=== PATIENT | female | born 2000 | race African-American/Black ===

== ENCOUNTER 2019-06-26 15:18 | Emergency (ER) | payer SELFPAY ==
--- NOTE | 2019-06-26 15:48 | ER Document Report ---
ED Medical Screen (RME) - General Chief Complaint: Vaginal Bleeding Stated Complaint: ABDNORMAL BLEEDING Time Seen by Provider: 06/26/19 15:37 Mode of Arrival: Ambulatory Information source: Patient Notes: 18-year-old female presents to ED for complaint of vaginal bleeding x12 days. She states sometimes the drainage is brown and sometimes it is red. She states sometimes it has a little tiny clots in. She states she has never had any bleeding like this in the past. She states she did do a test which was negative at home. She states the only medical history she has is asthma. She is alert oriented respirations regular and unlabored speaking in full sentences. She states she is not on any control at this time she did have a NuvaRing last month but states she no longer uses this. I have greeted and performed a rapid initial assessment of this patient. A comprehensive ED assessment and evaluation of the patient, analysis of test results and completion of medical decision making process will be conducted by an additional ED providers. Dictation of this chart was performed using voice recognition software; therefore, there may be some unintended grammatical errors. - Related Data Allergies/Adverse Reactions: No Known Allergies Allergy (Unverified 06/26/19 15:19) Past Medical History - Social History Chew tobacco use (# tins/day): No Frequency of alcohol use: Occasional Drug Abuse: None Pulmonary Medical History: Reports: Hx Asthma Renal/ Medical History: Denies: Hx Peritoneal Dialysis Physical Exam - Vital signs Vitals: Temp Pulse Resp BP Pulse Ox 98.7 F 86 18 143/81 H 99 06/26/19 15:26 06/26/19 15:26 06/26/19 15:26 06/26/19 15:26 06/26/19 15:26 Course - Vital Signs Vital signs: Temp Pulse Resp BP Pulse Ox 98.7 F 86 18 143/81 H 99 06/26/19 15:26 06/26/19 15:26 06/26/19 15:26 06/26/19 15:26 06/26/19 15:26
[2019-06-26 16:59] LABS: ABSOLUTE BASOPHILS # (AUTO) 0.1 10^3/uL (0.0-0.2); ABSOLUTE EOSINOPHILS # (AUTO) 0.1 10^3/uL (0.0-0.6); ABSOLUTE MONOCYTES (AUTO) 0.7 10^3/uL (0.1-1.4); ABSOLUTE NEUT (AUTO) 6.7 10^3/uL (1.7-8.2); EOSINOPHILS % (AUTO) 0.8 % (0-6); HEMATOCRIT 38.3 % (36.0-47.0); LYMPHOCYTES % (AUTO) 21.1 % (13-45); MEAN CORPUSCULAR HEMOGLOBIN 23.8 pg (27.0-33.4); MEAN CORPUSCULAR HGB CONC 31.2 g/dL (32.0-36.0); MEAN CORPUSCULAR VOLUME 76 fl (80-97); MONOCYTES % (AUTO) 6.8 % (3-13); PLATELET COUNT 386 10^3/uL (150-450); RED BLOOD COUNT 5.02 10^6/uL (3.72-5.28); RED CELL DISTRIBUTION WIDTH 15.5 % (11.5-14.0); SEGMENTED NEUTROPHILS % (AUTO) 70.3 % (42-78); TOTAL CELLS COUNTED % (AUTO) 100 %; WHITE BLOOD COUNT 9.6 10^3/uL (4.0-10.5)
[2019-06-26 17:17] LABS: APPEARANCE,URINE CLEAR; BILIRUBIN,URINE NEGATIVE (NEGATIVE); COLOR,URINE YELLOW; GLUCOSE, URINE NEGATIVE (NEGATIVE); KETONES,URINE NEGATIVE (NEGATIVE); LEUKOCYTE ESTERASE,URINE NEGATIVE (NEGATIVE); NITRITE,URINE NEGATIVE (NEGATIVE); PROTEIN,URINE NEGATIVE (NEGATIVE); URINE SPECIFIC GRAVITY 1.027
[2019-06-26 17:20] LABS: ALBUMIN 4.5 g/dL (3.7-5.6); ALKALINE PHOSPHATASE 61 U/L (50-135); ANION GAP 10 (5-19); ASPARTATE AMINO TRANSFERASE 19 U/L (5-30); BILIRUBIN,DIRECT 0.3 mg/dL (0.0-0.4); BILIRUBIN,TOTAL 0.3 mg/dL (0.2-1.3); BLOOD UREA NITROGEN 15 mg/dL (7-20); CALCIUM 9.9 mg/dL (8.4-10.2); CARBON DIOXIDE 26 mmol/L (22-30); CHLORIDE 104 mmol/L (98-107); GLUCOSE 86 mg/dL (75-110); POTASSIUM 4.2 mmol/L (3.6-5.0); TOTAL PROTEIN 7.6 g/dL (6.3-8.2)
--- NOTE | 2019-06-26 19:50 | ER Document Report ---
HPI - HPI Patient complains to provider of: Vaginal bleeding Time Seen by Provider: 06/26/19 15:37 Onset: Other - 12 days Onset/Duration: Persistent Pain Level: 2 Context: Patient presents complaining of vaginal spotting for the past 12 days. Patient states blood has appeared brown in color although is occasionally red. Patient reports mild cramping. Patient was recently changed from oral contraceptive pills to a NuvaRing last month. Patient took the NuvaRing out for a week but when she continued to have vaginal bleeding after reinserting the NuvaRing for 2 days she decided to take the NuvaRing out again. Patient states that she got concerned that she was having bleeding although she was on the medication. Patient denies any concerns about any sexually transmitted infection. Associated Symptoms: Other - vaginal bleeding Exacerbated by: Denies Relieved by: Denies Similar symptoms previously: No Recently seen / treated by doctor: Yes - ROS ROS below otherwise negative: Yes Systems Reviewed and Negative: Yes All other systems reviewed and negative - CONSTITUTIONAL Constitutional: DENIES: Fever, Chills - NEURO Neurology: DENIES: Headache, Weakness - CARDIOVASCULAR Cardiovascular: DENIES: Chest pain - RESPIRATORY Respiratory: DENIES: Trouble Breathing, Coughing - GASTROINTESTINAL Gastrointestinal: REPORTS: Abdominal Pain - cramping. DENIES: Nausea, Patient vomiting - URINARY Urinary: DENIES: Dysuria - REPRODUCTIVE Reproductive: REPORTS: Abnormal bleeding / discharge. DENIES: : - MUSCULOSKELETAL Musculoskeletal: DENIES: Back Pain - DERM Skin Color: Normal Past Medical History - General Information source: Patient - Social History Smoking Status: Never Smoker Chew tobacco use (# tins/day): No Frequency of alcohol use: Occasional Drug Abuse: None Occupation: Retail Lives with: Spouse/Significant other Family History: Reviewed & Not Pertinent Patient has suicidal ideation: No Patient has homicidal ideation: No Pulmonary Medical History: Reports: Hx Asthma Renal/ Medical History: Denies: Hx Peritoneal Dialysis Surgical Hx: Negative Vertical Provider Document - CONSTITUTIONAL Agree With Documented VS: Yes Exam Limitations: No Limitations General Appearance: WD/WN, No Apparent Distress - HEENT HEENT: Atraumatic, Normocephalic - NECK Neck: Normal Inspection, Supple. negative: Lymphadenopathy-Left, Lymphadenopathy-Right - RESPIRATORY Respiratory: Breath Sounds Normal, No Respiratory Distress - CARDIOVASCULAR Cardiovascular: Regular Rate, Regular Rhythm, No Murmur - GI/ABDOMEN Gastrointestinal: Abdomen Soft, Abdomen Non-Tender, No Organomegaly, Normal Bowel Sounds. negative: Abdomen Tender, Abdominal Guarding - BACK Back: Normal Inspection - MUSCULOSKELETAL/EXTREMETIES Musculoskeletal/Extremeties: SUJEY VAZQUEZ - NEURO Level of Consciousness: Awake, Alert, Appropriate Motor/Sensory: No Motor Deficit - DERM Integumentary: Warm, Dry, No Rash Course - Re-evaluation Re-evalutation: 06/26/19 19:48 Offered patient pelvic examination, patient declined. Patient denies any concern about any pelvic infection. Suspect patient's bleeding is likely result of recently changing her control and not using the NuvaRing as prescribed. Patient encouraged to follow-up with her primary doctor to place her on the new control method to discuss other options if she is not happy with this form. Patient not anemic with stable vital signs. Patient appears stable for discharge at this time. Discussed worsening symptoms that patient should return immediately for. - Vital Signs Vital signs: Temp Pulse Resp BP Pulse Ox 98.7 F 86 18 143/81 H 99 06/26/19 15:26 06/26/19 15:26 06/26/19 15:26 06/26/19 15:26 06/26/19 15:26 - Laboratory Result Diagrams: 06/26/19 16:40 06/26/19 16:40 Laboratory results interpreted by me: 06/26/19 06/26/19 16:40 16:40 MCV 76 L MCH 23.8 L MCHC 31.2 L RDW 15.5 H Urine Blood LARGE H Urine Urobilinogen 2.0 H Discharge - Discharge Clinical Impression: Vagina bleeding Condition: Stable Disposition: HOME, SELF-CARE Instructions: Vaginal Bleeding ([facility]) Additional Instructions: Return immediately for any new or worsening symptoms Followup with your primary care provider, call tomorrow to make a followup appointment Forms: Return to Work [facility] - Follow up as needed
[2019-06-26 20:01] VITALS: BP 142/73
== END 2019-06-26 20:01 | disposition home or self-care (01) ==
LOC: ER 15:18
DX: N93.9 Abnormal uterine and vaginal bleeding, unspecified (principal); R10.9 Unspecified abdominal pain; J45.909 Unspecified asthma, uncomplicated; Z91.19 Patient's noncompliance with other medical treatment and regimen
CPT/HCPCS: 36415; 80053; 81001; 84702; 85025; 87086; 99284

== ENCOUNTER 2019-08-25 11:57 | Emergency (ER) | payer MEDICAID ==
--- NOTE | 2019-08-25 12:47 | ER Document Report ---
ED Medical Screen (RME) - General Chief Complaint: Abdominal Pain Stated Complaint: ABDOMINAL PAIN Time Seen by Provider: 08/25/19 12:36 Notes: Patient is a 18-year-old G2, P0 18-year-old female presents emergency department with abdominal pain and vaginal bleeding. Patient states that she only has a little bit of vaginal bleeding that started yesterday. She did have some cramping that started 5 days ago. Last menstrual cycle was 07/15/2019. Denies any vomiting, nausea, or diarrhea. Past medical history includes asthma. Exam: Mildly tender mid lower abdomen. I have greeted and performed a rapid initial assessment of this patient. A comprehensive ED assessment and evaluation of the patient, analysis of test results and completion of medical decision making process will be conducted by an additional ED providers. TRAVEL OUTSIDE OF THE [place] IN LAST 30 DAYS: No - Related Data Allergies/Adverse Reactions: No Known Allergies Allergy (Verified 08/25/19 12:35) Past Medical History - Social History Chew tobacco use (# tins/day): No Frequency of alcohol use: None Drug Abuse: None Pulmonary Medical History: Reports: Hx Asthma Renal/ Medical History: Denies: Hx Peritoneal Dialysis Physical Exam - Vital signs Vitals: Temp Pulse Resp BP Pulse Ox 98.0 F 84 16 140/72 H 100 08/25/19 12:05 08/25/19 12:05 08/25/19 12:05 08/25/19 12:05 08/25/19 12:05 Course - Vital Signs Vital signs: Temp Pulse Resp BP Pulse Ox 98.0 F 84 16 140/72 H 100 08/25/19 12:05 08/25/19 12:05 08/25/19 12:05 08/25/19 12:05 08/25/19 12:05
[2019-08-25 13:10] LABS: ABSOLUTE BASOPHILS # (AUTO) 0.1 10^3/uL (0.0-0.2); ABSOLUTE EOSINOPHILS # (AUTO) 0.1 10^3/uL (0.0-0.6); ABSOLUTE LYMPHOCYTES (AUTO) 2.1 10^3/uL (0.5-4.7); ABSOLUTE MONOCYTES (AUTO) 0.5 10^3/uL (0.1-1.4); ABSOLUTE NEUT (AUTO) 5.7 10^3/uL (1.7-8.2); APPEARANCE,URINE CLEAR; BILIRUBIN,URINE NEGATIVE (NEGATIVE); COLOR,URINE YELLOW; EOSINOPHILS % (AUTO) 0.6 % (0-6); GLUCOSE, URINE NEGATIVE (NEGATIVE); HEMOGLOBIN 11.6 g/dL (12.0-15.5); KETONES,URINE 20 mg/dL (NEGATIVE); LEUKOCYTE ESTERASE,URINE NEGATIVE (NEGATIVE); MEAN CORPUSCULAR HEMOGLOBIN 24.5 pg (27.0-33.4); MEAN CORPUSCULAR HGB CONC 32.2 g/dL (32.0-36.0); MEAN CORPUSCULAR VOLUME 76 fl (80-97); MONOCYTES % (AUTO) 6.3 % (3-13); NITRITE,URINE NEGATIVE (NEGATIVE); PLATELET COUNT 328 10^3/uL (150-450); PROTEIN,URINE NEGATIVE (NEGATIVE); RED BLOOD COUNT 4.73 10^6/uL (3.72-5.28); RED CELL DISTRIBUTION WIDTH 16.4 % (11.5-14.0); SEGMENTED NEUTROPHILS % (AUTO) 67.1 % (42-78); TOTAL CELLS COUNTED % (AUTO) 100 %; URINE SPECIFIC GRAVITY 1.019; UROBILINOGEN,URINE NEGATIVE mg/dL (<2.0); WHITE BLOOD COUNT 8.5 10^3/uL (4.0-10.5)
[2019-08-25 13:39] LABS: ALBUMIN 4.4 g/dL (3.7-5.6); ALKALINE PHOSPHATASE 60 U/L (50-135); ANION GAP 11 (5-19); ASPARTATE AMINO TRANSFERASE 19 U/L (5-30); BILIRUBIN,DIRECT 0.1 mg/dL (0.0-0.4); BILIRUBIN,TOTAL 0.3 mg/dL (0.2-1.3); BLOOD UREA NITROGEN 8 mg/dL (7-20); CALCIUM 9.8 mg/dL (8.4-10.2); CARBON DIOXIDE 24 mmol/L (22-30); CHLORIDE 103 mmol/L (98-107); GLUCOSE 82 mg/dL (75-110); POTASSIUM 4.2 mmol/L (3.6-5.0); TOTAL PROTEIN 7.7 g/dL (6.3-8.2)
--- NOTE | 2019-08-25 15:41 | RADIOLOGY REPORT (SQ) ---
EXAM DESCRIPTION: U/S OB TRANSVAG W/DOPPLER COMPLETED DATE/TIME: 08/25/2019 3:23 pm REASON FOR STUDY: vaginal bleeding; transvaginal please COMPARISON: None. TECHNIQUE: Transvaginal static and realtime grayscale images acquired of the pelvis. Additional javier cted spectral and color Doppler images recorded. All images stored on PACs. [facility] [place]: [phone] CLINICAL DATES: ROBERT: 04/20/2020. EGA: 5 weeks 6 days LIMITATIONS: None. FINDINGS: FETUS: Single Living intrauterine in the lower uterine segment. . ULTRASOUND EGA: 5 weeks 6 days ULTRASOUND ROBERT: 04/20/2020 EFW: Not applicable less than 20 weeks. CRL: 0.25 cm FHR: 113 beats per minute. AMNIOTIC FLUID: Adequate amount. PLACENTA: Not yet developed due to early gestation. SUBCHORIONIC BLEED: Small 8 x 12 x 5 mm subchorionic bleeding. SIZE OF BLEED: See above. UTERUS: The uterus is retroverted. No masses. No anomalies. CERVICAL LENGTH: 1.9 cm. Closed. RIGHT ADNEXA: Normal ovary with normal vascular flow. The right ovary measures 2.3 x 1.7 x 1.6 cm. No adnexal free fluid. No adnexal masses. LEFT ADNEXA: The left ovary measures 3.0 x 1.9 x 2.0 cm. A complex cyst measures 1.3 x 1.5 x 1.3 cm may represent a hemorrhagic corpus luteum cyst. No adnexal free fluid. FREE FLUID: Small amount of fluid in the cul-de-sac. OTHER: No other significant finding. IMPRESSION: LIVING INTRAUTERINE in the lower uterine segment. The uterus is retroverted. EGA: 5 weeks 6 days Small subchorionic bleed. Small left ovarian complex cyst, may represent a hemorrhagic corpus luteal cyst. Trimester of : First trimester - 0 to 13 weeks. TECHNICAL DOCUMENTATION: JOB ID: [id number]- All Rights Reserved rev-04/04 Reading location - IP/workstation name: [email or web address]
--- NOTE | 2019-08-25 15:55 | ER Document Report ---
ED General - General Chief Complaint: Abdominal Pain Stated Complaint: ABDOMINAL PAIN Time Seen by Provider: 08/25/19 12:36 TRAVEL OUTSIDE OF THE [place] IN LAST 30 DAYS: No - HPI Notes: Patient is a 18-year-old G2, P0 female that presents the emergency department for evaluation of the lower abdominal pain and spotting. She states her symptoms started 5 days ago. Her last period was 07/15/2019. She states that she had scant amount of brown bleeding on Saturday. She states she really has not had any since then. She is had constant cramping, with no aggravating or alleviating factors since then. She denies any other vaginal discharge. She states she is taking her vitamins, but only sporadically. - Related Data Allergies/Adverse Reactions: No Known Allergies Allergy (Verified 08/25/19 12:35) Past Medical History - General Information source: Patient Last Menstrual Period: 07/15 - Social History Smoking Status: Never Smoker Chew tobacco use (# tins/day): No Frequency of alcohol use: None Drug Abuse: None Family History: Reviewed & Not Pertinent Patient has suicidal ideation: No Patient has homicidal ideation: No Pulmonary Medical History: Reports: Hx Asthma Renal/ Medical History: Denies: Hx Peritoneal Dialysis Review of Systems - Review of Systems Constitutional: No symptoms reported EENT: No symptoms reported Cardiovascular: No symptoms reported Respiratory: No symptoms reported Gastrointestinal: No symptoms reported Genitourinary: No symptoms reported Female Genitourinary: See HPI Musculoskeletal: No symptoms reported Skin: No symptoms reported Neurological/Psychological: No symptoms reported Physical Exam - Vital signs Vitals: Temp Pulse Resp BP Pulse Ox 98.0 F 84 16 140/72 H 100 08/25/19 12:05 08/25/19 12:05 08/25/19 12:05 08/25/19 12:05 08/25/19 12:05 - Notes Notes: Vital signs reviewed, please refer to chart. Head is normocephalic, atraumatic. Pupils equal round, reactive to light. Neck is supple without meningismus. Heart is regular rate and rhythm. Lungs are clear to auscultation bilaterally. Abdomen is soft, nontender, normoactive bowel sounds throughout. Extremities without cyanosis, clubbing. Posterior calves are nontender. Peripheral pulses are equal. Skin is warm and dry. Patient is awake, alert, neurological exam is nonfocal. Course - Re-evaluation Re-evalutation: 08/25/19 15:53 Patient presents emergency department for evaluation. Laboratory investigations did in fact confirm early . Ultrasound revealed a consistent with the ages of her last menstrual period, as well as a small subchorionic bleed. Patient is to follow-up with OB. She is encouraged to take prenatals, early his folic acid and regular vitamins daily. She voiced understanding to this. Otherwise we will refer her on to OB, she is return to the ED with worsening or new concerning symptoms of any sort. - Vital Signs Vital signs: Temp Pulse Resp BP Pulse Ox 98.0 F 84 16 140/72 H 100 08/25/19 12:05 08/25/19 12:05 08/25/19 12:05 08/25/19 12:05 08/25/19 12:05 - Laboratory Result Diagrams: 08/25/19 12:56 08/25/19 12:56 Laboratory results interpreted by me: 08/25/19 08/25/19 08/25/19 12:56 12:56 12:56 Hgb 11.6 L MCV 76 L MCH 24.5 L RDW 16.4 H Beta HCG, Quant 6711.00 H Urine Ketones 20 H Urine HCG, Qual POSITIVE H - Diagnostic Test Radiology reviewed: Reports reviewed Radiology results interpreted by me: 08/25/19 15:54 Transvaginal US 08/25/19 12:41 IMPRESSION: LIVING INTRAUTERINE in the lower uterine segment. The uterus is retroverted. EGA: 5 weeks 6 days Small subchorionic bleed. Small left ovarian complex cyst, may represent a hemorrhagic corpus luteal cyst. Trimester of : First trimester - 0 to 13 weeks. Discharge - Discharge Clinical Impression: First trimester bleeding Condition: Stable Disposition: HOME, SELF-CARE Instructions: Bleeding During Early ([facility]) Additional Instructions: You had a small subchorionic hemorrhage noted on your ultrasound. This will l ikely get absorbed, and is not of any significant concern at this time. Follow- up with OB. Pelvic rest. Return to the ED with worsening or new concerning symptoms of any sort.
[2019-08-25 16:22] VITALS: BP 116/53
== END 2019-08-25 16:22 | disposition home or self-care (01) ==
LOC: ER 11:57
DX: O20.8 Other hemorrhage in early pregnancy (principal); O34.81 Maternal care for other abnormalities of pelvic organs, first trimester; N83.202 Unspecified ovarian cyst, left side; O26.891 Other specified pregnancy related conditions, first trimester; R10.30 Lower abdominal pain, unspecified; O99.511 Diseases of the respiratory system complicating pregnancy, first trimester; J45.909 Unspecified asthma, uncomplicated; Z3A.01 Less than 8 weeks gestation of pregnancy
CPT/HCPCS: 36415; 76817; 80053; 81001; 81025; 84702; 85025; 86900; 86901; 93976; 99284

== ENCOUNTER 2020-01-18 06:07 | Outpatient (CLI) | payer MEDICAID ==
[2020-01-18 06:43] LABS: APPEARANCE,URINE SLIGHTLY-CLOUDY; BILIRUBIN,URINE NEGATIVE (NEGATIVE); COLOR,URINE YELLOW; GLUCOSE, URINE NEGATIVE (NEGATIVE); KETONES,URINE NEGATIVE (NEGATIVE); LEUKOCYTE ESTERASE,URINE NEGATIVE (NEGATIVE); NITRITE,URINE NEGATIVE (NEGATIVE); PROTEIN,URINE NEGATIVE (NEGATIVE); URINE SPECIFIC GRAVITY 1.016; UROBILINOGEN,URINE NEGATIVE mg/dL (<2.0)
[2020-01-18 06:56] LABS: URINE AMPHETAMINES SCREEN NEGATIVE; URINE BARBITURATES SCREEN NEGATIVE; URINE BENZODIAZEPINES SCREEN NEGATIVE; URINE COCAINE SCREEN NEGATIVE; URINE MARIJUANA (THC) SCREEN NEGATIVE; URINE METHADONE SCREEN NEGATIVE; URINE PHENCYCLIDINE SCREEN NEGATIVE
== END 2020-01-18 07:35 | disposition home or self-care (01) ==
LOC: LC 06:07
PROVIDERS: ATTEND Obstetrics & Gynecology
PROC: 4A1HXCZ Monitoring of Products of Conception, Cardiac Rate, External Approach (ICD-10-PCS; principal; 2020-01-18)
DX: O36.8120 Decreased fetal movements, second trimester, not applicable or unspecified (principal); Z3A.26 26 weeks gestation of pregnancy
CPT/HCPCS: 80307; 81001

== ENCOUNTER 2020-03-01 12:17 | Outpatient (CLI) | payer MEDICAID ==
[2020-03-01 13:17] LABS: APPEARANCE,URINE CLEAR; BILIRUBIN,URINE NEGATIVE (NEGATIVE); COLOR,URINE YELLOW; GLUCOSE, URINE NEGATIVE (NEGATIVE); KETONES,URINE NEGATIVE (NEGATIVE); LEUKOCYTE ESTERASE,URINE NEGATIVE (NEGATIVE); NITRITE,URINE NEGATIVE (NEGATIVE); PROTEIN,URINE NEGATIVE (NEGATIVE); URINE SPECIFIC GRAVITY 1.013
[2020-03-01 13:39] LABS: URINE AMPHETAMINES SCREEN NEGATIVE; URINE BARBITURATES SCREEN NEGATIVE; URINE BENZODIAZEPINES SCREEN NEGATIVE; URINE COCAINE SCREEN NEGATIVE; URINE MARIJUANA (THC) SCREEN NEGATIVE; URINE METHADONE SCREEN NEGATIVE; URINE PHENCYCLIDINE SCREEN NEGATIVE
--- NOTE | 2020-03-01 13:51 | Non Stress Test Report ---
Non Stress Test Datetime Report Generated by CPN: 03/01/2020 13:51 DEMOGRAPHIC EGA NST: 32.6 INDICATION Indication for Study (NST) Other: iup 33 wks abdominal cramping VITAL SIGNS Temperature - NST: 99.0 Pulse - NST: 99 RESP - NST: 14 NBPSYS NST: 137 NBPDIA NST: 86 URINE RESULTS Urine Protein, NST: Negative Urine Ketones - NST: Negative Urine Glucose - NST: Negative Urine Blood - NST: Positive MONITORING Monitor Explained: Monitor Explained; Test Explained; Patient Verbalized Understanding Time on Monitor: 02/29/2020 12:33 Time off Monitor: 03/01/2020 13:33 NST Duration: 1500 NST INTERVENTIONS NST Interventions: PO Hydration Physician Notified NST: A Newton CNM BABY A: [id number] BABY A Movement : Present Contraction Frequency : none FHR Baseline : 135 Accelerations : 15X15 Decelerations : None Variability : Moderate 6-25bpm NST Review: Meets Criteria for Reactive NST NST Review and Verified By : Deepika Hoffman, RN NST Results: Reactive NST REPORT Report Trigger: Send Report
== END 2020-03-01 13:39 | disposition home or self-care (01) ==
LOC: LC 12:17
PROVIDERS: ATTEND Obstetrics & Gynecology Gynecology
PROC: 4A1HXCZ Monitoring of Products of Conception, Cardiac Rate, External Approach (ICD-10-PCS; principal; 2020-03-01)
DX: Z34.93 Encounter for supervision of normal pregnancy, unspecified, third trimester (principal)
CPT/HCPCS: 59025; 80307; 81001; 87086

== ENCOUNTER 2020-03-18 16:29 | Outpatient (CLI) | payer MEDICAID ==
--- NOTE | 2020-03-18 17:09 | Non Stress Test Report ---
Non Stress Test Datetime Report Generated by CPN: 03/18/2020 17:08 DEMOGRAPHIC EGA NST: 35.3 VITAL SIGNS Temperature - NST: 98.3 Pulse - NST: 105 RESP - NST: 16 NBPSYS NST: 131 NBPDIA NST: 61 MONITORING Monitor Explained: Monitor Explained; Test Explained; Patient Verbalized Understanding Time on Monitor: 03/18/2020 16:42 NST INTERVENTIONS NST Interventions: None Physician Notified NST: Dr Garza BABY A: [id number] BABY A Movement : Present Contraction Frequency : none FHR Baseline : 145 Accelerations : 15X15 Decelerations : None Variability : Moderate 6-25bpm NST Review: Meets Criteria for Reactive NST NST Review and Verified By : SAutry NST Results: Reactive NST REPORT Report Trigger: Send Report
== END 2020-03-18 17:10 | disposition home or self-care (01) ==
LOC: LC 16:29
PROVIDERS: ATTEND Obstetrics & Gynecology Gynecology
DX: Z34.83 Encounter for supervision of other normal pregnancy, third trimester (principal); Z3A.35 35 weeks gestation of pregnancy
CPT/HCPCS: 59025

== ENCOUNTER 2020-03-25 15:20 | Outpatient (CLI) | payer MEDICAID ==
--- NOTE | 2020-03-25 16:26 | Non Stress Test Report ---
Non Stress Test Datetime Report Generated by CPN: 03/25/2020 16:26 DEMOGRAPHIC EGA NST: 36.3 INDICATION Indication for Study (NST) Other: IUP at 36.3; Repeat NST MONITORING Monitor Explained: Monitor Explained; Test Explained; Patient Verbalized Understanding Time on Monitor: 03/25/2020 15:34 Time off Monitor: 03/25/2020 16:21 NST Duration: 47 NST INTERVENTIONS NST Interventions: PO Hydration; Reposition Patient Physician Notified NST: A Newton CNM BABY A: [id number] BABY A Movement : Present Contraction Frequency : x 1 FHR Baseline : 135 Accelerations : 15X15 Decelerations : None Variability : Moderate 6-25bpm NST Review: Meets Criteria for Reactive NST NST Review and Verified By : LC Jordan NST Results: Reactive NST REPORT Report Trigger: Send Report
== END 2020-03-25 16:24 | disposition home or self-care (01) ==
LOC: LC 15:20
PROVIDERS: ATTEND Obstetrics & Gynecology
DX: O24.419 Gestational diabetes mellitus in pregnancy, unspecified control (principal); Z3A.36 36 weeks gestation of pregnancy
CPT/HCPCS: 59025

== ENCOUNTER 2020-04-05 09:26 | Inpatient (IN) | payer MEDICAID ==
[2020-04-05 10:01] LABS: APPEARANCE,URINE CLEAR; BILIRUBIN,URINE NEGATIVE (NEGATIVE); COLOR,URINE YELLOW; GLUCOSE, URINE NEGATIVE (NEGATIVE); KETONES,URINE TRACE mg/dL (NEGATIVE); LEUKOCYTE ESTERASE,URINE NEGATIVE (NEGATIVE); NITRITE,URINE NEGATIVE (NEGATIVE); PROTEIN,URINE NEGATIVE (NEGATIVE); URINE SPECIFIC GRAVITY 1.009; UROBILINOGEN,URINE NEGATIVE mg/dL (<2.0)
[2020-04-05 10:17] LABS: URINE AMPHETAMINES SCREEN NEGATIVE; URINE BARBITURATES SCREEN NEGATIVE; URINE BENZODIAZEPINES SCREEN NEGATIVE; URINE COCAINE SCREEN NEGATIVE; URINE MARIJUANA (THC) SCREEN NEGATIVE; URINE METHADONE SCREEN NEGATIVE; URINE PHENCYCLIDINE SCREEN NEGATIVE
[2020-04-05] MEDS ORDERED: PENICILLIN G POTASSIUM 5,000,000 UNIT in DEXTROSE 5%-WATER 100 ML IV ONE (10:20)
[2020-04-05] MEDS ORDERED: OXYTOCIN/0.9 % SODIUM CHLORIDE 30 UNIT/500 ML RTUINJ ONE (10:27)
[2020-04-05] MEDS ORDERED: LIDOCAINE 1% INJ-PF (10 MG/ML) 30 ML SDV ONE (10:27)
[2020-04-05] MEDS ORDERED: MISOPROSTOL 0.2 MG TABLET ONE (10:27)
[2020-04-05] MEDS ORDERED: OXYTOCIN 10 UNIT/ML VIAL ONE (10:27)
[2020-04-05] MEDS ORDERED: PENICILLIN G-K 5 MILLION UNIT VIAL ONE (10:28)
--- NOTE | 2020-04-05 11:04 | Admission Physical ---
Datetime Report Generated by CPN: 04/05/2020 11:03 CURRENT ADMISSION Hx Assessment: The History has been Reviewed and is Current Chief Complaint: Suspected Ruptured Membranes Indication for Induction: Not Applicable Admit Impression : Term, Intrauterine ; Ruptured Membranes Admit Plan: Admit to Unit; Initiate Labor Augmentation Protocol ALLERGIES Medication Allergies: No Medication Allergies: No Known Allergies (04/05/2020) Latex: No Latex Allergies OBSTETRICAL HISTORY EDC: 04/19/2020 00:00 : 2 Para: 0 Term: 0 : 0 Ectopic: 0 Livin Cesareans: 0 VBACs: 0 Multiple Births: 0 Gestational Diabetes: Yes Current Procedures: Ultrasound SEE RECORDS Alcohol: No Marijuana : No Cocaine: No Other Illicit Drugs: No Cigarettes: Never Smoker. [id number] MEDICAL HISTORY Other Medical Diseases: Yes Medical History Comments: MORBID OBESITY PHYSICAL EXAM General: Normal Heart: Normal Lungs: Normal Genitourinary Exam: Normal Extremities: Normal Vital Signs: Reviewed Details Vital Signs: mild range, continue to monitor VAGINAL EXAM Contraction Comments: rare MEMBRANES Membranes: Ruptured FETUS A EGA: 38.0 Monitoring: External US FHR- Baseline: 140 Variability: Moderate 6-25bpm Accelerations: 15X15 Decelerations: None Presentation: Vertex Admit Comment: 19yo @ 38wga into L_D with reports of LOF since 814 this am (clear fluid). Pt is B pos, RI, varicella non-immune with hx of anemia and also complicated by pos. OSB screening with negative [id number] and normal anatomy. Medical hx also significant for morbid obesity (BMI 43 @ NOB). Pt is GBS positive and prophylaxis with PCN will be started at this time. Pt to be augmented as needed. INFORMED CONSENT Assignment: Nii Garza MD Signature: with User ID: Mili : with User ID: Mili
[2020-04-05 11:12] LABS: ABSOLUTE BASOPHILS # (AUTO) 0.1 10^3/uL (0.0-0.2); ABSOLUTE EOSINOPHILS # (AUTO) 0.1 10^3/uL (0.0-0.6); ABSOLUTE LYMPHOCYTES (AUTO) 1.6 10^3/uL (0.5-4.7); ABSOLUTE MONOCYTES (AUTO) 0.7 10^3/uL (0.1-1.4); ABSOLUTE NEUT (AUTO) 7.6 10^3/uL (1.7-8.2); BASOPHILS % (AUTO) 0.5 % (0-2); EOSINOPHILS % (AUTO) 0.6 % (0-6); HEMATOCRIT 31.1 % (36.0-47.0); HEMOGLOBIN 10.2 g/dL (12.0-15.5); MEAN CORPUSCULAR HEMOGLOBIN 24.3 pg (27.0-33.4); MEAN CORPUSCULAR HGB CONC 32.7 g/dL (32.0-36.0); MEAN CORPUSCULAR VOLUME 74 fl (80-97); PLATELET COUNT 262 10^3/uL (150-450); RED BLOOD COUNT 4.18 10^6/uL (3.72-5.28); RED CELL DISTRIBUTION WIDTH 16.4 % (11.5-14.0); SEGMENTED NEUTROPHILS % (AUTO) 75.9 % (42-78); TOTAL CELLS COUNTED % (AUTO) 100 %
[2020-04-05] MEDS: RINGERS SOLUTION,LACTATED 1,000 ML IV PRN ×3 (11:13→18:54)
[2020-04-05] MEDS ORDERED: OXYTOCIN/0.9 % SODIUM CHLORIDE 30 UNIT/500 ML RTUINJ IV PRN (12:58)
[2020-04-05] MEDS ORDERED: PROMETHAZINE HCL INJ 25 MG/1 ML VIAL IV ONE (14:11)
[2020-04-05] MEDS ORDERED: NALBUPHINE HCL INJ 10 MG/1 ML AMPULE IV ONE (14:11)
[2020-04-05] MEDS ORDERED: PROMETHAZINE HCL INJ 25 MG/1 ML VIAL ONE (14:14)
[2020-04-05] MEDS ORDERED: NALBUPHINE HCL INJ 10 MG/1 ML AMPULE ONE (14:14)
[2020-04-05] MEDS ORDERED: PENICILLIN G POTASSIUM 2,500,000 UNIT in DEXTROSE 5%-WATER 50 ML IV SCH (14:21)
[2020-04-05] MEDS: PENICILLIN G POTASSIUM 2,500,000 UNIT in DEXTROSE 5%-WATER 50 ML IV SCH ×3 (15:04→22:39)
[2020-04-05] MEDS ORDERED: BUPIVACAINE HCL 0.25 % INJ/PF (2.5 MG/1 ML) 30 ML VIAL ONE (15:55)
[2020-04-05] MEDS ORDERED: FENTANYL/BUPIVACAINE/NS/PF 300 MCG/150 ML RTUINJ EPI ONE (15:55)
[2020-04-05] MEDS ORDERED: EPHEDRINE SULFATE INJ 50 MG/1 ML AMPULE ONE (15:55)
[2020-04-06] MEDS ORDERED: OXYTOCIN/0.9 % SODIUM CHLORIDE 30 UNIT/500 ML RTUINJ IV PRN (00:12)
--- NOTE | 2020-04-06 01:58 | Warning Signs in Babies ---
VOD Warning Signs Datetime Report Generated by [facility]: 04/06/2020 01:58 VOD#608 -Warning Signs in Babies: Needs to be viewed. (01/18/2020 06:16:Siria Hines RN)
[2020-04-06] MEDS ORDERED: BENZOCAINE/MENTHOL AEROSOL SPRAY 56 ML TOP PRN (02:35)
[2020-04-06] MEDS ORDERED: PROMETHAZINE HCL INJ 25 MG/1 ML VIAL IV PRN (02:35)
[2020-04-06] MEDS ORDERED: MEASLES,MUMPS&RUBELLA VACC/PF 0.5 ML VIAL SUBCUT PRN (02:35)
[2020-04-06] MEDS ORDERED: ZOLPIDEM TARTRATE 5 MG TABLET PO PRN (02:35)
[2020-04-06] MEDS ORDERED: GLYCERIN/WITCH HAZEL LEAF 1 EACH MED..WIPE TP PRN (02:35)
[2020-04-06] MEDS ORDERED: DIPH/PERTUSS(ACELL)/TETANUS VAC/PF 0.5 ML SYR (>=10YO) IM PRN (02:35)
[2020-04-06] MEDS ORDERED: ACETAMINOPHEN 650 MG SUPP.RECT PR PRN (02:35)
[2020-04-06] MEDS ORDERED: NA PHOS,M-B/NA PHOS,DI-BA (ADULT) 133 ML ENEMA PR PRN (02:35)
[2020-04-06] MEDS ORDERED: DIBUCAINE 1% OINTMENT 28 GM TP PRN (02:35)
[2020-04-06] MEDS ORDERED: PSEUDOEPHEDRINE HCL 30 MG TABLET PO PRN (02:35)
[2020-04-06] MEDS ORDERED: ACETAMINOPHEN WITH CODEINE #3 TABLET PO PRN ×2 (02:35)
[2020-04-06] MEDS ORDERED: PROMETHAZINE HCL 25 MG TABLET PO PRN (02:35)
[2020-04-06] MEDS ORDERED: DIPHENHYDRAMINE HCL 25 MG CAPSULE PO PRN (02:35)
[2020-04-06] MEDS ORDERED: MAGNESIUM HYDROXIDE SUSP 30 ML UDCUP PO PRN (02:35)
[2020-04-06] MEDS ORDERED: PROMETHAZINE HCL 25 MG SUPP.RECT PR PRN (02:35)
[2020-04-06] MEDS: PENICILLIN G POTASSIUM 2,500,000 UNIT in DEXTROSE 5%-WATER 50 ML IV SCH (02:40)
--- NOTE | 2020-04-06 02:59 | Delivery Summary ---
Del Sum A-C Datetime Report Generated by CPN: 04/06/2020 02:58 DELIVERY PERSONNEL DELIVERY PERSONNEL: [id number] Delivery Doctor:: Nii Garza MD Labor and Delivery Nurse:: Siria Hines RNbrim shaper Nurse:: Danae Farias RNC Nursery Nurse:: Margaret Nursery Nurse:: Alcira MATERNAL INFORMATION Delivery Anesthesia: Epidural Medications After Delivery: Pitocin 30 Units in 500ml NS/D5W Estimated Blood Loss (ml): 400 Maternal Complications: None LABOR SUMMARY EDC: 04/19/2020 00:00 No. Babies in Womb: 1 Attempted: No Labor Anesthesia: Epidural LABOR INFORMATION Reason for Induction: Not Applicable Onset of Labor: 04/05/2020 10:00 Complete Dilatation: 04/06/2020 03:08 Oxytocin: Augmentation Group B Beta Strep: POSITIVE Antibiotics # of Doses: 4 Antibiotics Time of Last Dose: 2243 Name of Antibiotic Given: penicillin g Steroids Given: None Reason Steroids Not Administered: Not Applicable MEMBRANES Membranes Rupture Method: Spontaneous Rupture of Membranes: 04/05/2020 08:15 Length of Rupture (hr): 17.38 Amniotic Fluid Color: Clear Amniotic Fluid Amount: Small Amniotic Fluid Odor: None STAGES OF LABOR Stage 1 hr: 17 Stage 1 min: 8 Stage 2 hr: -1 Stage 2 min: -30 Stage 3 hr: 0 Stage 3 min: 2 Total Time in Labor hr: 15 Total Time in Labor min: 40 VAGINAL DELIVERY Episiotomy: None Laceration #1: Vaginal Laceration Extension #1: First Degree Laceration Repair: Yes Sponge Count Correct: Yes Sharps Count Correct: Yes BABY A INFORMATION Delivery Date/Time: 04/06/2020 01:38 Method of Delivery: Vaginal Born in Route : No : N/A Forceps: N/A Vacuum Extraction: N/A Shoulder Dystocia : No PRESENTATION/POSITION BABY A Presentation: Cephalic Cephalic Presentation: Vertex Vertex Position: Left Occipital Anterior Breech Presentation: N/A PLACENTA INFORMATION BABY A Placenta Delivery Time : 04/06/2020 01:40 Placenta Method of Delivery: Spontaneous Placenta Status: Delivered SCORES BABY A Heart Rate 1 min: >100 bpm Resp Effort 1 min: Good Cry Reflex Irritability 1 min: Cough or Sneeze or Pulls Away Muscle Tone 1 min: Active Motion Color 1 min: Blue/Pale Resuscitation Effort 1 min: Tactile Stimulation SCORE 1 MIN: 8 Heart Rate 5 min: >100 bpm Resp Effort 5 min: Good Cry Reflex Irritability 5 min: Cough or Sneeze or Pulls Away Muscle Tone 5 min: Active Motion Color 5 min: Body [place], Extremities Blue Resuscitation Effort 5 min: Tactile Stimulation SCORE 5 MIN: 9 INFANT INFORMATION BABY A Gestational Age at Delivery: 38.0 Gestational Status: Early Term- 37- 38.6 Weeks Outcome : Liveborn Infant Condition : Stable Infant Sex: Female IDENTIFICATION BABY A Infant Verification Date/Time: 04/06/2020 02:25 ID Band Number: [id number] Mother's Name Verified: Yes Infant RN Verifying : Oziel Lord RN/Sunny Farias RN WEIGHT/LENGTH BABY A Infant Birthweight (gm): 2957 Weight (lb): 6 Weight (oz): 8 Length (in): 19.75 Infant Length (cm): 50.17 CORD INFORMATION BABY A No. Cord Vessels: 3 Nuchal Cord : N/A Cord Blood Taken: Yes-For Storage (Mom's Blood type +) (Annotations: Data stored by [facility] on behalf of user) Infant Suction: Mouth; Nose ASSESSMENT BABY A Complications: Multiple Late Decels; Multiple Variable Decels Physical Findings at Delivery: Within Normal Limits Respirations: Appears Normal Skin to Skin: Yes Skin to Skin Time (min): 60 Sr. Payroll Manager/ALS Called : Yes Care By: Alcira Larry RN Transferred To: Remains with Mother BABY B INFORMATION : N/A
[2020-04-06] MEDS: IBUPROFEN 800 MG TABLET PO SCH ×3 (05:14→21:38)
[2020-04-06] MEDS: FERROUS SULFATE 325 MG TABLET PO SCH ×2 (09:31→18:04)
[2020-04-06] MEDS: PRENATAL VITAMIN W DHA CAPSULE PO SCH (09:31)
[2020-04-06] MEDS: DOCUSATE SODIUM 100 MG CAPSULE PO SCH ×2 (09:31→18:04)
[2020-04-06] MEDS: SENNOSIDES/DOCUSATE 8.6-50 MG 1 EACH TABLET PO SCH (09:31)
[2020-04-06] MEDS: FAMOTIDINE 20 MG TABLET PO SCH ×2 (09:31→21:37)
--- NOTE | 2020-04-06 10:11 | PDOC PROGRESS REPORT ---
Subjective-OB Progress Note for:: 04/06/20 Subjective: Vag del this am, doing well now. She denies heavy bleeding/clots. Eating breakfast, no complaints. Physical Exam (OB) Vital Signs: Temp Pulse Resp BP Pulse Ox 98.2 F 100 18 134/70 H 100 04/06/20 07:35 04/06/20 07:35 04/06/20 07:35 04/06/20 07:35 04/06/20 07:35 Intake & Output 04/05/20 04/06/20 04/07/20 06:59 06:59 06:59 Intake Total 1200 500 Balance 1200 500 Weight 134.4 kg - PIH/Pre-Eclampsia DTR's: 1 + Clonus: Negative Headache: Absent Epigastric Pain: No Visual Changes: No - Lochia Lochia Amount: Small 10-25 ml Lochia Color: Rubra/Red - Abdomen Description: Soft, Round Hernia Present: No Fundal Description: Firm, Midline Fundal Height: u/u - u/2 Objective-Diagnostic Laboratory: 04/05/20 10:56 04/05/20 04/05/20 10:56 10:56 WBC 10.0 RBC 4.18 Hgb 10.2 L Hct 31.1 L MCV 74 L MCH 24.3 L MCHC 32.7 RDW 16.4 H Plt Count 262 Seg Neutrophils % 75.9 Blood Type B POSITIVE Antibody Screen NEGATIVE Assessment and Plan(PN) - Assessment and Plan (1) (normal spontaneous vaginal delivery) Is this a current diagnosis for this admission?: Yes (2) Anemia complicating , third trimester Is this a current diagnosis for this admission?: Yes (3) Qualifiers: Weeks of gestation: 38 weeks Qualified Code(s): Z3A.38 - 38 weeks gestation of Is this a current diagnosis for this admission?: Yes (4) SRM (spontaneous rupture of membranes) Is this a current diagnosis for this admission?: Yes - Time Spent with Patient Time with patient: Less than 15 minutes Medications reviewed and adjusted accordingly: Yes - Disposition Anticipated Discharge: Home Within: within 24 hours
[2020-04-07] MEDS: IBUPROFEN 800 MG TABLET PO SCH ×3 (05:24→22:55)
[2020-04-07 07:22] LABS: HEMATOCRIT 30.6 % (36.0-47.0); HEMOGLOBIN 9.7 g/dL (12.0-15.5); MEAN CORPUSCULAR HEMOGLOBIN 23.6 pg (27.0-33.4); MEAN CORPUSCULAR HGB CONC 31.5 g/dL (32.0-36.0); MEAN CORPUSCULAR VOLUME 75 fl (80-97); RED BLOOD COUNT 4.08 10^6/uL (3.72-5.28); RED CELL DISTRIBUTION WIDTH 16.7 % (11.5-14.0); WHITE BLOOD COUNT 10.2 10^3/uL (4.0-10.5)
[2020-04-07 07:47] LABS: PLATELET COUNT 251 10^3/uL (150-450)
[2020-04-07] MEDS: DOCUSATE SODIUM 100 MG CAPSULE PO SCH ×2 (09:17→17:22)
[2020-04-07] MEDS: FERROUS SULFATE 325 MG TABLET PO SCH ×2 (09:18→17:22)
[2020-04-07] MEDS: SENNOSIDES/DOCUSATE 8.6-50 MG 1 EACH TABLET PO SCH (09:18)
[2020-04-07] MEDS: PRENATAL VITAMIN W DHA CAPSULE PO SCH (09:18)
[2020-04-07] MEDS: FAMOTIDINE 20 MG TABLET PO SCH ×2 (09:18→22:58)
[2020-04-07] MEDS ORDERED: PROMETHAZINE HCL INJ 25 MG/1 ML VIAL IV PRN (10:00)
[2020-04-07] MEDS ORDERED: DIPH/PERTUSS(ACELL)/TETANUS VAC/PF 0.5 ML SYR (>=10YO) IM PRN (10:00)
[2020-04-07] MEDS ORDERED: MEASLES,MUMPS&RUBELLA VACC/PF 0.5 ML VIAL SUBCUT PRN (10:00)
--- NOTE | 2020-04-07 12:32 | PDOC PROGRESS REPORT ---
Subjective-OB Progress Note for:: 04/07/20 Subjective: reports bleeding slowing, pain controlled with current meds. denies needs. Physical Exam (OB) Vital Signs: Temp Pulse Resp BP Pulse Ox 97.8 F 104 H 18 141/78 H 100 04/07/20 08:00 04/07/20 08:00 04/07/20 08:00 04/07/20 08:00 04/07/20 08:00 Intake & Output 04/06/20 04/07/20 04/08/20 06:59 06:59 06:59 Intake Total 1200 900 480 Balance 1200 900 480 Weight 134.4 kg - Abdomen Description: Soft Hernia Present: No Fundal Description: Firm, Midline Fundal Height: u/u - u/2 - Abdominal Distension: No distension Tenderness: Nontender - Extremities Lower extremities: Jerry's sign - neg Calf: Normal, Nontender Objective-Diagnostic Laboratory: 04/07/20 06:38 04/07/20 06:38 WBC 10.2 RBC 4.08 Hgb 9.7 L Hct 30.6 L MCV 75 L MCH 23.6 L MCHC 31.5 L RDW 16.7 H Plt Count 251 Assessment and Plan(PN) - Time Spent with Patient Time with patient: Less than 15 minutes Medications reviewed and adjusted accordingly: Yes - Disposition Anticipated Discharge: Home Within: within 24 hours
--- NOTE | 2020-04-07 23:14 | SBAR Transfer Report ---
SBAR Report Datetime Report Generated by CPN: 04/07/2020 23:14 Maternal Information Age: 19 (01/18/2020 06:07:QS system process) Race: (01/18/2020 06:07:QS system process) Preferred Med Tx Language: Stateless (01/18/2020 06:16:Elsy Hernandez RN) : 2 (01/18/2020 06:16:Elsy Hernandez RN) Para: 0 (01/18/2020 06:16:Elsy Hernandez RN) Term: 0 (01/18/2020 06:16:Elsy Hernandez RN) : 0 (01/18/2020 06:16:Elsy Hernandez RN) Livin (01/18/2020 06:16:Elsy Hernandez RN) EDC: 04/19/2020 00:00 (01/18/2020 06:16:Elsy Hernandez RN) EGA: 38.1 (01/18/2020 06:16:QS system process) Admission Date/Time: 04/05/2020 10:14 (04/05/2020 10:14:QS system process) Attending: CHALO OCONNOR (04/05/2020 09:27:QS system process) Reason for Admission: Rupture of Membranes (04/05/2020 09:52:Lenora Kerns RN) Reason for Induction: Not Applicable (01/18/2020 06:16:Lenora Kerns RN) Latex Allergy: No Latex Allergies (01/18/2020 06:16:Elsy Hernandez RN) Medication Allergy: No Known Allergies (04/05/2020) (04/05/2020 09:42:QS system process) Environmental Allergy: SEASONAL (01/18/2020 06:16:Lenora Kerns RN) Maternal Labs Blood Type: B Positive (01/18/2020 06:16:Elsy Hernandez RN) Group Beta Strep: POSITIVE (01/18/2020 06:16:Lenora Kerns RN) RPR/VDRL: NONREACTIVE (04/05/2020 10:56:QS system process) Rubella: Immune (01/18/2020 06:16:Elsy Hernandez RN) HIV Status: Negative (01/18/2020 06:16:Elsy Hernandez RN) Gonorrhea: Negative (01/18/2020 06:16:Lenora Kerns RN) Chlamydia: Negative (01/18/2020 06:16:Lenora Kerns RN) Hepatitis B: Negative (01/18/2020 06:16:Elsy Hernandez RN) Medical/Surgical History Diabetes: Yes (01/18/2020 06:16:Lenora Kerns RN) Diabetes Type: Gestational Diabetes (01/18/2020 06:16:Lenora Kerns RN) Hypertension: No (01/18/2020 06:16:Lenora Kerns RN) Heart Disease: No (01/18/2020 06:16:Lenora Kerns RN) Autoimmune Disorder: No (01/18/2020 06:16:Lenora Kerns RN) Kidney Disease/ UTI: No (01/18/2020 06:16:Lenora Kerns RN) Neurologic/Epilepsy: No (01/18/2020 06:16:Lenora Kerns RN) Psychiatric Disorder: No (01/18/2020 06:16:Lenora Kerns RN) Hepatitis/Liver Disease: No (01/18/2020 06:16:Lenora Kerns RN) Varicosities/Phlebitis: No (01/18/2020 06:16:Lenora Kerns RN) Thyroid Dysfunction: No (01/18/2020 06:16:Lenora Kerns RN) Trauma/Violence: No (01/18/2020 06:16:Lenora Kerns RN) Blood Transfusion: No (01/18/2020 06:16:Lenora Kerns RN) D (Rh) Sensitization: No (01/18/2020 06:16:Lenora Kerns RN) Pulmonary (TB, Asthma): Yes (01/18/2020 06:16:Lenora Kerns RN) Breast: No (01/18/2020 06:16:Lenora Kerns RN) Gynecological Surgery: No (01/18/2020 06:16:Lenora Kerns RN) Hospitalization/Surgery: No (01/18/2020 06:16:Lenora Kerns RN) Anesthetic Complication: No (01/18/2020 06:16:Lenora Kerns RN) Abnormal Pap Smear: No (01/18/2020 06:16:Lenora Kerns RN) Infertility: No (01/18/2020 06:16:Lenora Kerns RN) ART Treatment: No (01/18/2020 06:16:Lenora Kerns RN) Other Medical Diseases: Yes (01/18/2020 06:16:Lenora Kerns RN) Significant Family History: No (01/18/2020 06:16:Lenora Kerns RN) Hx Comments: CHILDHOOD ASTHMA MORBID OBESITY (01/18/2020 06:16:Lenora Kerns RN) Infectious History Chlamydia: No (01/18/2020 06:16:Lenora Kerns RN) Genital Herpes: No (01/18/2020 06:16:Lenora Kerns RN) Gonorrhea: No (01/18/2020 06:16:Lenora Kerns RN) Hepatitis: No (01/18/2020 06:16:Lenora Kerns RN) HIV/AIDS: No (01/18/2020 06:16:Lenora Kerns RN) Human Papilloma Virus: No (01/18/2020 06:16:Lenora Kerns RN) Syphilis: No (01/18/2020 06:16:Lenora Kerns RN) Genetic History Age >=35 at ROBERT: No (01/18/2020 06:16:Lenora Kerns RN) Thalassemia: No (01/18/2020 06:16:Lenora Kerns RN) Neural Tube Defect: No (01/18/2020 06:16:Lenora Kerns RN) Congenital Heart Defect: No (01/18/2020 06:16:Leonra Kerns RN) Down Syndrome: No (01/18/2020 06:16:Lenora Kerns RN) Saroj-Sachs: No (01/18/2020 06:16:Lenora Kerns RN) Reginaldo: No (01/18/2020 06:16:Lenora Kerns RN) Familial Dysautonomia: No (01/18/2020 06:16:Lenora Kerns RN) Sickle Cell Disease/Trait: No (01/18/2020 06:16:Lenora Kerns RN) Hemophilia/Bld Disorder: No (01/18/2020 06:16:Lenora Kerns RN) Muscular Dystrophy: No (01/18/2020 06:16:Lenora Kerns RN) Cystic Fibrosis: No (01/18/2020 06:16:Lenora Kerns RN) [place]'s Chorea: No (01/18/2020 06:16:Lenora Kerns RN) Mental Retardation/Autism: No (01/18/2020 06:16:Lenora Kerns RN) Tested for Fragile X: No (01/18/2020 06:16:Lenora Kerns RN) Other Inherited Disorder: No (01/18/2020 06:16:Lenora Kerns RN) Maternal Metabolic: No (01/18/2020 06:16:Lenora Kerns RN) FOB Defect: No (01/18/2020 06:16:Lenora Kerns RN) Recurrent Loss/Stillborn: No (01/18/2020 06:16:Lenora Kerns RN) Other Defects: No (01/18/2020 06:16:Lenora Kerns RN) Drugs/Medications: No (01/18/2020 06:16:Lenora Kerns RN) Delivery Information Delivery Date/Time: 04/06/2020 01:38 (01/18/2020 06:16:KEVIN Guallpa) GA at Delivery: 38.0 (01/18/2020 06:16:Lenora Kerns RN) Method of Delivery: Vaginal (04/06/2020 01:38:KEVIN Guallpa) Infant Complications Baby A: Multiple Late Decels; Multiple Variable Decels (01/18/2020 06:16:KEVIN Guallpa) Delivery Anesthesia: Epidural (01/18/2020 06:16:Lenora Kerns RN) Episiotomy: None (01/18/2020 06:16:KEVIN Guallpa) Laceration Type: Vaginal (01/18/2020 06:16:KEVIN Guallpa) EBL: 400 (01/18/2020 06:16:Siria Hines RN)
[2020-04-08] MEDS: IBUPROFEN 800 MG TABLET PO SCH (06:31)
[2020-04-08] MEDS: FAMOTIDINE 20 MG TABLET PO SCH (09:30)
[2020-04-08] MEDS: PRENATAL VITAMIN W DHA CAPSULE PO SCH (09:30)
[2020-04-08] MEDS: DOCUSATE SODIUM 100 MG CAPSULE PO SCH (09:30)
[2020-04-08] MEDS: FERROUS SULFATE 325 MG TABLET PO SCH (09:30)
[2020-04-08] MEDS: SENNOSIDES/DOCUSATE 8.6-50 MG 1 EACH TABLET PO SCH (09:30)
--- NOTE | 2020-04-08 10:29 | PDOC DISCHARGE SUMMARY ---
Impression - Admit/DC Date/PCP Admission Date/Primary Care Provider: 04/05/20 10:14 CHALO OCONNOR MD Discharge Date: 04/08/20 - PP Day #2, doing well, B+ , Rubella Immune, hx GDM, - Discharge Diagnosis (1) Hx gestational diabetes Is this a current diagnosis for this admission?: Yes (2) Anemia complicating , third trimester Is this a current diagnosis for this admission?: Yes (3) (normal spontaneous vaginal delivery) Is this a current diagnosis for this admission?: Yes (4) Is this a current diagnosis for this admission?: Yes (5) SRM (spontaneous rupture of membranes) Is this a current diagnosis for this admission?: Yes - Additional Information Resuscitation Status: Full Code Discharge Diet: As Tolerated, Regular Discharge Activity: Activity As Tolerated, No Lifting Over 10 Pounds, Pelvic Rest Referrals: CHALO OCONNOR MD [Primary Care Provider] - Prescriptions: Ibuprofen [Motrin 800 mg Tablet] 800 mg PO Q8 #60 tablet Home Medications: Ibuprofen [Motrin 800 mg Tablet] 800 mg PO Q8 #60 tablet 04/08/20 Vit/Dha [ Multi + Dha Capsule] 1 cap PO DAILY capsule 04/08/20 HPI Reason(s) for Admission: Onset of Labor Procedures: NST, Ultrasound Intrapartum Procedure(s): Spontaneous Vaginal Delivery Complication(s): Laceration-Vaginal Laceration-Degree: 1st Results Laboratory Results: WBC 10.2 10^3/uL (4.0-10.5) 04/07/20 06:38 RBC 4.08 10^6/uL (3.72-5.28) 04/07/20 06:38 Hgb 9.7 g/dL (12.0-15.5) L 04/07/20 06:38 Hct 30.6 % (36.0-47.0) L 04/07/20 06:38 MCV 75 fl (80-97) L 04/07/20 06:38 MCH 23.6 pg (27.0-33.4) L 04/07/20 06:38 MCHC 31.5 g/dL (32.0-36.0) L 04/07/20 06:38 RDW 16.7 % (11.5-14.0) H 04/07/20 06:38 Plt Count 251 10^3/uL (150-450) 04/07/20 06:38 Lymph % (Auto) 16.0 % (13-45) 04/05/20 10:56 Tillman % (Auto) 7.0 % (3-13) 04/05/20 10:56 Eos % (Auto) 0.6 % (0-6) 04/05/20 10:56 Baso % (Auto) 0.5 % (0-2) 04/05/20 10:56 Absolute Neuts (auto) 7.6 10^3/uL (1.7-8.2) 04/05/20 10:56 Absolute Lymphs (auto) 1.6 10^3/uL (0.5-4.7) 04/05/20 10:56 Absolute Monos (auto) 0.7 10^3/uL (0.1-1.4) 04/05/20 10:56 Absolute Eos (auto) 0.1 10^3/uL (0.0-0.6) 04/05/20 10:56 Absolute Basos (auto) 0.1 10^3/uL (0.0-0.2) 04/05/20 10:56 Seg Neutrophils % 75.9 % (42-78) 04/05/20 10:56 Urine Color YELLOW 04/05/20 09:35 Urine Appearance CLEAR 04/05/20 09:35 Urine pH 6.0 (5.0-9.0) 04/05/20 09:35 Ur Specific Mobile 1.009 04/05/20 09:35 Urine Protein NEGATIVE mg/dL (NEGATIVE) 04/05/20 09:35 Urine Glucose (UA) NEGATIVE mg/dL (NEGATIVE) 04/05/20 09:35 Urine Ketones TRACE mg/dL (NEGATIVE) H 04/05/20 09:35 Urine Blood NEGATIVE (NEGATIVE) 04/05/20 09:35 Urine Nitrite NEGATIVE (NEGATIVE) 04/05/20 09:35 Urine Bilirubin NEGATIVE (NEGATIVE) 04/05/20 09:35 Urine Urobilinogen NEGATIVE mg/dL (<2.0) 04/05/20 09:35 Ur Leukocyte Esterase NEGATIVE (NEGATIVE) 04/05/20 09:35 Urine Ascorbic Acid NEGATIVE (NEGATIVE) 04/05/20 09:35 Membranes Rupture POSITIVE (NEGATIVE) H 04/05/20 09:47 Urine Opiates Screen NEGATIVE 04/05/20 09:35 Urine Methadone Screen NEGATIVE 04/05/20 09:35 Ur Barbiturates Screen NEGATIVE 04/05/20 09:35 Ur Phencyclidine Scrn NEGATIVE 04/05/20 09:35 Ur Amphetamines Screen NEGATIVE 04/05/20 09:35 U Benzodiazepines Scrn NEGATIVE 04/05/20 09:35 Urine Cocaine Screen NEGATIVE 04/05/20 09:35 U Marijuana (THC) Screen NEGATIVE 04/05/20 09:35 RPR NONREACTIVE (NONREACTIVE) 04/05/20 10:56 Blood Type B POSITIVE 04/05/20 10:56 Antibody Screen NEGATIVE 04/05/20 10:56 Plan Plan of Treatment: d/c home, watch blood sugars at home. F/up in 4 wks for PP check Time Spent: Less than 30 Minutes
[2020-04-08 10:31] VITALS: BP 141/78
== END 2020-04-08 13:25 | disposition home or self-care (01) | DRG 807 ==
LOC: LC 09:26 → LR 10:14 → 2S 04-06 03:53
PROVIDERS: ADMIT Obstetrics & Gynecology Gynecology; ATTEND Obstetrics & Gynecology Gynecology
PROC: 10E0XZZ Delivery of Products of Conception, External Approach (ICD-10-PCS; principal; 2020-04-05)
PROC: 0HQ9XZZ Repair Perineum Skin, External Approach (ICD-10-PCS; 2020-04-05)
DX: O99.824 Streptococcus B carrier state complicating childbirth (principal); Z37.0 Single live birth; O99.02 Anemia complicating childbirth; D64.9 Anemia, unspecified; O70.0 First degree perineal laceration during delivery; O99.214 Obesity complicating childbirth; E66.01 Morbid (severe) obesity due to excess calories; Z3A.38 38 weeks gestation of pregnancy
CPT/HCPCS: 36415; 80307; 81005; 84112; 85025; 85027; 86592; 86850; 86900; 86901; 94760; J2300; J2540; J2550; J2590; J3010; J3490; J7060